=== PATIENT | male | born 1960 | race American Indian/Alaskan Native ===

== ENCOUNTER 2020-06-20 08:52 | Emergency (ER) | payer MEDICARE ==
[2020-06-20 08:57] VITALS: BP 156/70
[2020-06-20 09:55] LABS: BUN/Creatinine Ratio 19; Basophils # (Auto) 0.2 K/mm3 (0.0-0.1); Blood Urea Nitrogen 17 mg/dL (9-20); Calcium 8.8 mg/dL (8.4-10.2); Eosinophils # (Auto) 0.3 K/mm3 (0.0-0.4); Eosinophils % (Auto) 2.7 % (0.0-4.3); Hematocrit 38.2 % (35.5-45.6); Hemoglobin 14.7 gm/dl (11.8-15.2); Hemolysis Index 238; Lymphocytes # (Auto) 3.6 K/mm3 (1.2-5.4); Lymphocytes % (Auto) 35.1 % (13.4-35.0); Mean Corpuscular Volume 95 fl (84-94); Monocytes # (Auto) 0.9 K/mm3 (0.0-0.8); Monocytes % (Auto) 9.1 % (0.0-7.3); Platelet Count 224 K/mm3 (140-440); Red Blood Count 4.02 M/mm3 (3.65-5.03); Red Cell Distribution Width 13.5 % (13.2-15.2)
[2020-06-20 09:58] LABS: Mean Corpuscular HGB Conc 38 % (32-34)
[2020-06-20 09:58] LABS: Bilirubin,Urine NEG (Negative); Blood,Urine NEG (Negative); Color,Urine Yellow (Yellow); Protein,Urine <15 mg/dL mg/dL (Negative); Urobilinogen,Urine < 2.0 mg/dL (<2.0); WBC,Urine < 1.0 /HPF (0.0-6.0)
[2020-06-20 10:37] LABS: Alanine Aminotransferase < 5 units/L (7-56)
[2020-06-20 10:39] LABS: Albumin 3.6 g/dL (3.9-5)
--- NOTE | 2020-06-20 11:27 | Emergency Department Report ---
ED General Adult HPI - General Chief complaint: Abdominal Pain Stated complaint: LEFT SIDE PAIN Time Seen by Provider: 06/20/20 11:07 Source: patient Mode of arrival: Ambulatory Limitations: No Limitations - History of Present Illness Initial comments: 59-year-old F [place] male past medical history of hypertension diabetes presents emerged department complaining of a two-week history of progressively worsening left flank pain which is now began to radiate to the left lower quadrant and a dull achy sensation. The symptoms are worse with deep breath and coughing Ambulating reports no shortness of breath reports no hemoptysis no hematemesis no hematochezia. Has been having some polyuria and polydipsia. Ports no headache blurred vision or dizziness. Consistency: constant Improves with: none Worsens with: none Associated Symptoms: cough, nausea/vomiting. denies: confusion, loss of appetite, syncope, weakness Treatments Prior to Arrival: none - Related Data Home Medications Medication Instructions Recorded Confirmed Last Taken No Known Home Medications [No 07/20/13 07/20/13 Unknown Reported Home Medications] Allergies Allergy/AdvReac Type Severity Reaction Status Date / Time No Known Allergies Allergy Unverified 07/20/13 18:10 ED Review of Systems ROS: Stated complaint: LEFT SIDE PAIN Other details as noted in HPI Comment: All other systems reviewed and negative ED Past Medical Hx - Past Medical History Previous Medical History?: Yes Hx Hypertension: Yes Hx Diabetes: Yes - Surgical History Past Surgical History?: No - Social History Smoking Status: Current Every Day Smoker Substance Use Type: None - Medications Home Medications: Home Medications Medication Instructions Recorded Confirmed Last Taken Type No Known Home Medications [No 07/20/13 07/20/13 Unknown History Reported Home Medications] ED Physical Exam - General Limitations: No Limitations General appearance: alert, in no apparent distress - Head Head exam: Present: atraumatic, normocephalic - Eye Eye exam: Present: normal appearance, PERRL, EOMI Pupils: Present: normal accommodation - ENT ENT exam: Present: normal exam, normal orophraynx, mucous membranes moist, TM's normal bilaterally - Neck Neck exam: Present: normal inspection, full ROM - Respiratory Respiratory exam: Present: normal lung sounds bilaterally. Absent: respiratory distress, wheezes, rales, chest wall tenderness, accessory muscle use - Cardiovascular Cardiovascular Exam: Present: regular rate, normal rhythm. Absent: systolic murmur, diastolic murmur, rubs, gallop - GI/Abdominal GI/Abdominal exam: Present: soft, normal bowel sounds - Rectal Rectal exam: Present: deferred - Extremities Exam Extremities exam: Present: normal inspection - Back Exam Back exam: Present: normal inspection - Neurological Exam Neurological exam: Present: alert, oriented X3 - Psychiatric Psychiatric exam: Present: normal affect, normal mood - Skin Skin exam: Present: warm, dry, intact, normal color. Absent: rash ED Course Vital Signs 06/20/20 08:54 Temperature 97.9 F Pulse Rate 99 H Respiratory 20 Rate Blood Pressure 156/70 O2 Sat by Pulse 97 Oximetry ED Medical Decision Making - Lab Data Result diagrams: 06/20/20 09:01 06/20/20 14:21 - Radiology Data Radiology results: report reviewed [address] [address] XRay Report Signed Patient: MICAH GRUBBS MR#: [id number] : 1960 Acct:[id number] Age/Sex: 59 / M ADM Date: 06/20/20 Loc: ED Attending Dr: Ordering Physician: LATA MCALLISTER Date of Service: 06/20/20 Procedure(s): XR chest routine 2V Accession Number(s): [id number] cc: LATA MCALLISTER Fluoro Time In Minutes: CHEST 2 VIEWS INDICATION / CLINICAL INFORMATION: left lower rohini pain. COMPARISON: None available. FINDINGS: SUPPORT DEVICES: None. HEART / MEDIASTINUM: No significant abnormality. LUNGS / PLEURA: No significant pulmonary or pleural abnormality. No pneumothorax. ADDITIONAL FINDINGS: No significant additional findings. IMPRESSION: No acute cardiopulmonary abnormality. Signer Name: Naaryan Almazan MD Signed: 06/20/2020 12:32 PM Workstation Name: [id number] Transcribed By: SS Dictated By: NARAYAN ALMAZAN Electronically Authenticated By: NARAYAN ALMAZAN Signed Date/Time: 06/20/20 1232 DD/ 1232 TD/TT: [address] [address] Cat Scan Report Signed Patient: MICAH GRUBBS MR#: [id number] : 1960 Acct:[id number] Age/Sex: 59 / M ADM Date: 06/20/20 Loc: ED Attending Dr: Ordering Physician: LATA MCALLISTER Date of Service: 06/20/20 Procedure(s): CT abdomen pelvis w con Accession Number(s): [id number] cc: LATA MCALLISTER CT ABDOMEN AND PELVIS WITH CONTRAST INDICATION / CLINICAL INFORMATION: MAIN. TECHNIQUE: Axial CT images were obtained through the abdomen and pelvis after IV contrast. All CT scans at this location are performed using CT dose reduction for ALARA by means of automated exposure control. COMPARISON: None available. FINDINGS: LOWER CHEST: Mild to moderate paraseptal emphysema noted. LIVER: No significant abnormality. GALLBLADDER: No significant abnormality. BILE DUCTS: No significant abnormality. PANCREAS: No significant abnormality. SPLEEN: No significant abnormality. ADRENALS: No significant abnormality. RIGHT KIDNEY / URETER: Symmetric perinephric stranding is of doubtful clinical significance. LEFT KIDNEY / URETER: Symmetric perinephric stranding is of doubtful clinical significance. STOMACH / SMALL BOWEL: There is mild distal gastric mucosal thickening which can be seen with gastritis. COLON: No significant abnormality. APPENDIX: No significant abnormality. PERITONEUM: No free fluid. No free air. No fluid collection. LYMPH NODES: No significant adenopathy. AORTA / ARTERIES: Moderate atherosclerotic calcification and soft plaque without acute abnormality. IVC / VEINS: No significant abnormality. URINARY BLADDER: Distended without significant abnormality. REPRODUCTIVE ORGANS: No significant abnormality. ADDITIONAL FINDINGS: None. SKELETAL SYSTEM: No significant abnormality. IMPRESSION: 1. Mild gastric mucosal thickening can be seen with gastritis. Clinical correlation is recommended. 2. Patchy bilateral perinephric stranding is doubtful clinical significance. Signer Name: Narayan Almazan MD Signed: 06/20/2020 12:13 PM Workstation Name: [id number] Transcribed By: SS Dictated By: NARAYAN ALMAZAN Electronically Authenticated By: NARAYAN ALMAZAN Signed Date/Time: 06/20/20 1213 DD/ 1205 Critical care attestation.: If time is entered above; I have spent that time in minutes in the direct care of this critically ill patient, excluding procedure time. ED Disposition Clinical Impression: Abdominal pain Disposition: ELOPED Is pt being admited?: No Does the pt Need Aspirin: No Condition: Undetermined Referrals: PRIMARY CARE, [Primary Care Provider] - 3-5 Days
[2020-06-20] MEDS ORDERED: SODIUM CHLORIDE 0.9% 1000 ML 1,000 ML IV ONE (11:49)
--- NOTE | 2020-06-20 12:17 | Cat Scan Report ---
CT ABDOMEN AND PELVIS WITH CONTRAST INDICATION / CLINICAL INFORMATION: MAIN. TECHNIQUE: Axial CT images were obtained through the abdomen and pelvis after IV contrast. All CT scans at this location are performed using CT dose reduction for ALARA by means of automated exposure control. COMPARISON: None available. FINDINGS: LOWER CHEST: Mild to moderate paraseptal emphysema noted. LIVER: No significant abnormality. GALLBLADDER: No significant abnormality. BILE DUCTS: No significant abnormality. PANCREAS: No significant abnormality. SPLEEN: No significant abnormality. ADRENALS: No significant abnormality. RIGHT KIDNEY / URETER: Symmetric perinephric stranding is of doubtful clinical significance. LEFT KIDNEY / URETER: Symmetric perinephric stranding is of doubtful clinical significance. STOMACH / SMALL BOWEL: There is mild distal gastric mucosal thickening which can be seen with gastrit is. COLON: No significant abnormality. APPENDIX: No significant abnormality. PERITONEUM: No free fluid. No free air. No fluid collection. LYMPH NODES: No significant adenopathy. AORTA / ARTERIES: Moderate atherosclerotic calcification and soft plaque without acute abnormality. IVC / VEINS: No significant abnormality. URINARY BLADDER: Distended without significant abnormality. REPRODUCTIVE ORGANS: No significant abnormality. ADDITIONAL FINDINGS: None. SKELETAL SYSTEM: No significant abnormality. IMPRESSION: 1. Mild gastric mucosal thickening can be seen with gastritis. Clinical correlation is recommended. 2. Patchy bilateral perinephric stranding is doubtful clinical significance. Signer Name: Cordell Almazan MD Signed: 06/20/2020 12:13 PM Workstation Name: [id number]
--- NOTE | 2020-06-20 12:37 | XRay Report ---
CHEST 2 VIEWS INDICATION / CLINICAL INFORMATION: left lower rohini pain. COMPARISON: None available. FINDINGS: SUPPORT DEVICES: None. HEART / MEDIASTINUM: No significant abnormality. LUNGS / PLEURA: No significant pulmonary or pleural abnormality. No pneumothorax. ADDITIONAL FINDINGS: No significant additional findings. IMPRESSION: No acute cardiopulmonary abnormality. Signer Name: Cordell Almazan MD Signed: 06/20/2020 12:32 PM Workstation Name: [id number]
[2020-06-20 14:57] LABS: Calcium 9.2 mg/dL (8.4-10.2); Hemolysis Index 76
[2020-06-20 15:06] LABS: Blood Urea Nitrogen 17 mg/dL (9-20)
[2020-06-20 15:08] LABS: BUN/Creatinine Ratio 28
== END 2020-06-20 15:39 | disposition left against medical advice (07) ==
LOC: ED 08:52 → EDBD 08:52 → ED 15:39
DX: R10.32 Left lower quadrant pain (principal); R05 Cough; R35.8 Other polyuria; R63.1 Polydipsia; R11.2 Nausea with vomiting, unspecified; I10 Essential (primary) hypertension; E11.9 Type 2 diabetes mellitus without complications; F17.200 Nicotine dependence, unspecified, uncomplicated
CPT/HCPCS: 36415; 71046; 74177; 80048; 80053; 81001; 82962; 83690; 85025; 96360; 96361; 99284; J7030; Q9967

== ENCOUNTER 2022-05-23 05:56 | Inpatient (IN) | payer OTHER, MEDICARE ==
[2022-05-17 13:46] LABS: Hematocrit 38.6 % (35.5-45.6); Hemoglobin 13.2 gm/dl (11.8-15.2); Mean Corpuscular HGB Conc 34 % (32-34); Mean Corpuscular Volume 96 fl (84-94); Platelet Count 216 K/mm3 (140-440); Red Blood Count 4.02 M/mm3 (3.65-5.03); Red Cell Distribution Width 14.6 % (13.2-15.2)
[2022-05-17 14:08] LABS: BUN/Creatinine Ratio 11; Blood Urea Nitrogen 13 mg/dL (9-20); Hemolysis Index 3
--- NOTE | 2022-05-17 17:26 | Anesthesia Consultation ---
Anesthesia Consult and Med Hx Date of service: 05/23/22 - Airway Anesthetic Teeth Evaluation: Dentures, Edentulous ROM Head & Neck: Adequate Mental/Hyoid Distance: Adequate Mallampati Class: Class II Intubation Access Assessment: Good - Pre-Operative Health Status ASA Pre-Surgery Classification: ASA3 Proposed Anesthetic Plan: General (+Art line) - Pulmonary Hx Smoking: Yes (SMOKES 4-5 CIGS/DAY) Hx Sleep Apnea: No - Cardiovascular System Hx Hypertension: Yes Hx Heart Attack/AMI: No Hx Peripheral Vascular Disease: Yes - Central Nervous System CVA: Yes (MARCH 2022. CAROTID STENOSIS.) Hx Psychiatric Problems: Yes (PTSD) - Gastrointestinal Hx Gastroesophageal Reflux Disease: No - Endocrine Hx Non-Insulin Dependent Diabetes: Yes - Hematic Hx Sickle Cell Disease: No - Other Systems Hx Alcohol Use: No Hx Substance Use: No Hx Cancer: No Hx Obesity: No - Additional Comments Anesthesia Medical History Comments: numbness left side mouth, left hand, and left leg. +cardiac clearance; had NST and ECHO [id number]
[2022-05-23] MEDS ORDERED: ceFAZolin/STERILE WATER 2 GM/20 ML SYRINGE IV NR (06:00)
[2022-05-23] MEDS ORDERED: ACETAMINOPHEN 325 MG TAB PO ONE (06:00)
[2022-05-23] MEDS: ACETAMINOPHEN 325 MG TAB PO SCH ×2 (06:38→18:19)
[2022-05-23] MEDS: LACTATED RINGERS 1,000 ML IV SCH ×2 (06:45→22:17)
[2022-05-23] MEDS ORDERED: MIDAZOLAM 2 MG/2 ML INJ ONE (07:17)
[2022-05-23] MEDS ORDERED: propofoL 200 MG/20 ML VIAL IV ONE (07:28)
[2022-05-23] MEDS ORDERED: HYDROmorphone 1 MG/1 ML INJ ONE (07:28)
[2022-05-23] MEDS ORDERED: ROCURONIUM 50 MG/5 ML INJ IV ONE ×2 (07:29→12:30)
[2022-05-23] MEDS ORDERED: LIDOCAINE MPF (2%) 20 MG/1 ML VIAL 5 ML ONE (07:29)
[2022-05-23] MEDS ORDERED: HYDROmorphone 0.5 MG/0.5 ML INJ IV PRN (07:52)
--- NOTE | 2022-05-23 07:52 | Anesthesia Day of Surgery ---
Anesthesia Day of Surgery - Day of Surgery Patient Examined: Yes Patient H&P Reviewed: Yes Patient is NPO: Yes
[2022-05-23] MEDS ORDERED: MIDAZOLAM 2 MG/2 ML INJ IV NR (08:00)
[2022-05-23] MEDS ORDERED: MORPHINE 4 MG/1 ML INJ IV PRN ×2 (08:44)
[2022-05-23] MEDS ORDERED: DOPamine 800 MG/D5W 250ML 800 MG/250 ML BAG IV SCH (09:00)
[2022-05-23] MEDS ORDERED: SODIUM CHLORIDE 0.9% 1000 ML 1,000 ML IV SCH (09:30)
[2022-05-23] MEDS ORDERED: BUPIVACAINE/PF (0.5%) 5 MG/1 ML 10 ML VIAL INFILTRATI ONE ×2 (10:45→13:23)
[2022-05-23] MEDS ORDERED: LIDOCAINE-MPF (1%) 10 MG/1 ML VIAL 5 ML ONE (10:46)
[2022-05-23] MEDS ORDERED: PROTAMINE SULFATE 50 MG/5 ML INJ ONE (10:46)
[2022-05-23] MEDS ORDERED: HEPARIN 10,000 UNITS/10 ML VIAL ONE (10:46)
[2022-05-23] MEDS ORDERED: PAPAVERINE 60 MG/2 ML INJ SDV ONE (10:46)
[2022-05-23] MEDS ORDERED: SODIUM CHLORIDE 0.9% 500 ML 500 ML ONE (10:47)
[2022-05-23] MEDS ORDERED: rifAMPin 600 MG VIAL ONE (10:47)
[2022-05-23] MEDS ORDERED: SODIUM CHLORIDE 0.9% 0 ML ONE (10:47)
[2022-05-23] MEDS ORDERED: THROMBIN (RECOMBINANT) 5,000 UNIT VIAL TP ONE (10:47)
[2022-05-23] MEDS ORDERED: LACTATED RINGERS 1,000 ML ONE (12:06)
[2022-05-23] MEDS ORDERED: HEPARIN 10,000 UNITS/10 ML VIAL IV ONE (12:11)
[2022-05-23] MEDS ORDERED: SODIUM CHLORIDE 0.9% 500 ML IVPB IRRIGATION ONE (12:14)
[2022-05-23] MEDS ORDERED: SODIUM CHLORIDE 0.9% IRR 1,500 ML BOTTLE IR ONE (12:18)
[2022-05-23] MEDS ORDERED: PHENYLEPHRINE 10 MG/1 ML INJ SDV ONE (12:25)
[2022-05-23] MEDS ORDERED: SODIUM CHLORIDE P/F VIAL 10 ML 10 ML ONE (12:25)
[2022-05-23] MEDS ORDERED: SODIUM CHLORIDE 0.9% 100 ML ONE (12:25)
[2022-05-23] MEDS ORDERED: rifAMPin 600 MG VIAL IV ONE (12:27)
[2022-05-23] MEDS ORDERED: SODIUM CHLORIDE 0.9% P/F 10 ML VIAL INFILTRATI ONE (12:28)
[2022-05-23] MEDS ORDERED: NEOSTIGMINE 10MG/10 ML INJ MDV ONE (13:29)
[2022-05-23] MEDS ORDERED: ONDANSETRON 4 MG/2 ML INJ ONE (13:29)
[2022-05-23] MEDS ORDERED: GLYCOPYRROLATE 0.4 MG/2 ML INJ ONE (13:29)
--- NOTE | 2022-05-23 13:48 | Vascular Lab Report ---
VL carotid duplex LT INDICATION / CLINICAL INFORMATION: LT.CAROTID STENOSIS. COMPARISON: None available. FINDINGS/IMPRESSION: Intraoperative ultrasound of the left internal carotid artery was performed status post left endarter ectomy. The left internal carotid artery demonstrates patency with peak systolic velocities of 107 cm /s and end-diastolic velocities of 31 cm/s. No significant stenosis. Signer Name: Silvano Germain DO Signed: 05/23/2022 1:44 PM Workstation Name: [id number]
--- NOTE | 2022-05-23 13:56 | Operative Report ---
Operative Report Operative Report: Date of procedure: 05/23/2022 Pre-operative diagnosis: Left Carotid Artery Stenosis Post-operative diagnosis: Left Carotid Artery Stenosis Procedure(s): 1. Left Carotid Endarterectomy With Patch Angioplasty 2. Intraoperative Completion Duplex Surgeon: Tyler Collins MD [employer]acht: None Anesthesia: General Endotracheal Anesthesia EBL: Minimal Findings: There was soft thrombus within with evidence of plaque ulceration upon creating the arteriotomy. Completion duplex demonstrated monophasic flow in the left internal carotid artery with peak systolic velocities normalized. Specimen: Left Carotid Plaque Counts: Correct Complications: None Condition: Stable Indication: The patient is a 61-year-old male with a history of a right stroke however he had minimal plaque within the right internal carotid artery. He was found to have greater than 80% stenosis of the left internal carotid artery. His symptoms from his stroke resolved and he is in need of a carotid endarterectomy with patch angioplasty to prevent a CVA on the left. He was given the risk, benefits, and alternative procedures and consented to the procedure. Description of Procedure: The patient was brought to the operating room and laid in supine position. After general endotracheal anesthesia was achieved the patient was placed in beachchair position with her head elevated and turned slightly to the right. The patient's neck and chest were prepped and draped in normal fashion. An oblique incision was then created along the anterior border of the sternocleidomastoid. The incision was then carried down to the facial vein using sharp dissection. The facial vein was then dissected out circum ferentially, suture ligated and divided. The dissection was then carried down to the common carotid using sharp dissection. The common carotid artery was dissected out circumferentially taking care to avoid the vagus nerve which was identified and avoided. The artery was then controlled with a large vessel loop. The dissection was carried up along the external carotid and the superficial thyroid artery was identified dissected out circumferentially and controlled with a 2-0 silk. The external carotid was dissected out and controlled a small vessel loop. I then dissected out the internal carotid artery well above the plaque which was identified by a change in hue of the artery from yellow to blue and palpation of the artery over a right angle. I controlled the internal carotid artery with a small vessel and at this point the patient was systemically heparinized with heparin IV. Once the heparin had circulated for 3 minute I clamped the internal carotid artery followed by the common carotid and then the external Carotid artery. I created an arteriotomy extending from the common carotid into the internal carotid, well above the plaque, using an 11 blade and Ríos scissors. I then flashed the internal carotid artery to check for adequate backbleeding. Once ensure there was adequate backbleeding reclamped the artery and used a [place] blade to dissect the plaque away from the artery. I used a right angle to continue the dissection of this plane from lateral to medial and then divided the plaque using Ríos scissors. I then trimmed the plaque proximally using Ríos and then teased the plaque away from the distal endpoint insuring that there were no areas of dissection or intimal flaps. These plaque forceps to remove all loose debris and then flushed the artery with heparinized saline. I then closed the artery using the Dacron patch and two 6-0 Prolenes in running fashion. Prior to completing the closure I flushed all arteries to remove all loose debris and t hen flushed the artery with heparinized saline. I then completed the closure in an flashed the internal carotid, reclamped and then removed the clamp from the common carotid followed by the external carotid and allowed any loose debris to flush into the external carotid. I then removed the clamp from the internal carotid artery. Hemostasis was achieved with repair sutures with 6-0 Prolene in interrupted fashion and a combination of direct pressure with Quick Clot. Once hemostasis was achieved I performed an intraoperative duplex that demonstrated no evidence of intimal flaps and monophasic flow within the internal carotid artery. I then anesthetized the wound with 0.5% Marcaine and closed in 2 layers using a 3-0 Vicryl in running in the deep dermal layer and a 4-0 Monocryl in running in the subcuticular layer and dressed it with the Dermabond. The patient tolerated the procedure well. All sponge, needle, and instrument counts were correct. The patient was taken to the recovery area in stable condition.
--- NOTE | 2022-05-23 14:59 | Post Anesthesia Evaluation ---
- Post Anesthesia Evaluation Patient Participated: Yes Airway Patent: Yes Stable Respiratory Function: Yes Nausea/Vomiting: No Temp > 96.8F: Yes Pain Manageable: Yes Adequeate Hydration: Yes Anesthesia Complications: No
[2022-05-23] MEDS: DOCUSATE SODIUM 100 MG CAP PO SCH ×2 (16:45→23:26)
[2022-05-23] MEDS: CLOPIDOGREL 75 MG TAB PO SCH (16:45)
[2022-05-23] MEDS: ceFAZolin/NS 1 GM/50 ML 1 GM/50 ML BAG IV SCH ×2 (18:23→21:36)
[2022-05-23] MEDS: NITROPRUSSIDE 50 MG in DEXTROSE 5% IN WATER 248 ML IV SCH (21:36)
[2022-05-24] MEDS: HYDROcodone/ACETAMINOPHEN 5-325 MG TAB PO PRN ×2 (01:25→20:44)
[2022-05-24 05:02] LABS: Basophils # (Auto) 0.1 K/mm3 (0.0-0.1); Basophils % (Auto) 0.7 % (0.0-1.8); Eosinophils # (Auto) 0.2 K/mm3 (0.0-0.4); Eosinophils % (Auto) 1.5 % (0.0-4.3); Hematocrit 35.4 % (35.5-45.6); Hemoglobin 11.7 gm/dl (11.8-15.2); Lymphocytes % (Auto) 32.8 % (13.4-35.0); Mean Corpuscular HGB Conc 33 % (32-34); Mean Corpuscular Volume 98 fl (84-94); Monocytes % (Auto) 7.8 % (0.0-7.3); Platelet Count 197 K/mm3 (140-440); Red Blood Count 3.63 M/mm3 (3.65-5.03); Red Cell Distribution Width 14.3 % (13.2-15.2)
[2022-05-24] MEDS: ACETAMINOPHEN 325 MG TAB PO PRN ×2 (08:34→14:50)
[2022-05-24] MEDS: LACTATED RINGERS 1,000 ML IV SCH (08:35)
[2022-05-24] MEDS: CLOPIDOGREL 75 MG TAB PO SCH (09:17)
[2022-05-24] MEDS: DOCUSATE SODIUM 100 MG CAP PO SCH ×2 (09:17→21:10)
[2022-05-24] MEDS ORDERED: METOPROLOL SUCCINATE XL 25 MG TAB PO SCH (12:00)
[2022-05-24] MEDS: FLUoxetine 20 MG CAP PO SCH (12:38)
--- NOTE | 2022-05-24 14:13 | Progress Note ---
Assessment and Plan POD #1 s/p Left Carotid endarterectomy with patch angioplasty Patient is doing well and without complications. Hypertension so Nipride gtt was started Home meds given so if hypertension resolves will discharge later today. If it persist will consult hospitalist for assistance and recommendations for additional medications to control BP. Discharge will be delayed until BP is controlled. Subjective Date of service: 05/24/22 Interval history: Patient is without complaints. Some hypertension so Nipride gtt was started. Objective - Constitutional Vitals: Vital Signs - 12hr 05/24/22 05/24/22 05/24/22 02:15 02:30 02:45 Temperature Pulse Rate 63 68 64 Pulse Rate [ From Monitor] Respiratory 16 15 16 Rate Blood Pressure 145/66 151/70 151/70 O2 Sat by Pulse 97 97 98 Oximetry 05/24/22 05/24/22 05/24/22 03:02 03:15 03:30 Temperature Pulse Rate 66 62 68 Pulse Rate [ From Monitor] Respiratory 16 15 15 Rate Blood Pressure 150/62 139/59 O2 Sat by Pulse 99 98 97 Oximetry 05/24/22 05/24/22 05/24/22 03:45 04:00 04:15 Temperature Pulse Rate 64 61 67 Pulse Rate [ From Monitor] Respiratory 15 13 16 Rate Blood Pressure 131/61 135/61 135/61 O2 Sat by Pulse 97 98 96 Oximetry 05/24/22 05/24/22 05/24/22 04:31 04:45 05:00 Temperature Pulse Rate 59 L 67 81 Pulse Rate [ From Monitor] Respiratory 15 15 16 Rate Blood Pressure 154/74 157/69 139/71 O2 Sat by Pulse 98 95 97 Oximetry 05/24/22 05/24/22 05/24/22 05:15 05:30 05:45 Temperature Pulse Rate 67 62 60 Pulse Rate [ From Monitor] Respiratory 12 18 16 Rate Blood Pressure 139/71 153/69 151/68 O2 Sat by Pulse 97 96 96 Oximetry 05/24/22 05/24/22 05/24/22 06:00 06:15 06:30 Temperature Pulse Rate 64 68 65 Pulse Rate [ 61 From Monitor] Respiratory 16 16 16 Rate Blood Pressure 149/68 141/70 139/65 O2 Sat by Pulse 98 97 97 Oximetry 05/24/22 05/24/22 05/24/22 06:45 07:00 07:15 Temperature Pulse Rate 62 68 64 Pulse Rate [ From Monitor] Respiratory 16 18 18 Rate Blood Pressure 137/64 144/60 131/57 O2 Sat by Pulse 97 98 96 Oximetry 05/24/22 05/24/22 05/24/22 07:31 07:45 08:00 Temperature 98 F Pulse Rate 68 72 67 Pulse Rate [ 67 From Monitor] Respiratory 20 13 18 Rate Blood Pressure 131/57 128/64 O2 Sat by Pulse 97 97 96 Oximetry 05/24/22 05/24/22 05/24/22 08:01 08:15 08:31 Temperature Pulse Rate 76 85 80 Pulse Rate [ From Monitor] Respiratory 16 12 15 Rate Blood Pressure 149/58 148/59 157/70 O2 Sat by Pulse 97 92 95 Oximetry 05/24/22 05/24/22 05/24/22 08:45 09:01 09:15 Temperature Pulse Rate 76 69 66 Pulse Rate [ From Monitor] Respiratory 14 17 17 Rate Blood Pressure 157/70 154/67 156/66 O2 Sat by Pulse 96 95 97 Oximetry 05/24/22 05/24/22 05/24/22 09:30 09:45 10:00 Temperature Pulse Rate 66 63 65 Pulse Rate [ From Monitor] Respiratory 19 18 18 Rate Blood Pressure 157/67 162/69 153/68 O2 Sat by Pulse 97 97 97 Oximetry 05/24/22 05/24/22 05/24/22 10:15 10:30 10:45 Temperature Pulse Rate 68 65 89 Pulse Rate [ From Monitor] Respiratory 17 18 20 Rate Blood Pressure 153/68 174/74 174/74 O2 Sat by Pulse 97 96 97 Oximetry 05/24/22 05/24/22 05/24/22 11:01 11:15 11:31 Temperature Pulse Rate 64 64 81 Pulse Rate [ From Monitor] Respiratory Rate Blood Pressure 173/71 173/71 168/71 O2 Sat by Pulse 97 97 95 Oximetry 05/24/22 05/24/22 05/24/22 11:42 11:45 12:00 Temperature 98.1 F Pulse Rate 71 70 Pulse Rate [ 91 H From Monitor] Respiratory 16 Rate Blood Pressure 162/69 156/71 O2 Sat by Pulse 94 96 Oximetry 05/24/22 05/24/22 05/24/22 12:15 12:31 12:45 Temperature Pulse Rate 71 74 75 Pulse Rate [ From Monitor] Respiratory 21 Rate Blood Pressure 156/67 156/65 149/63 O2 Sat by Pulse 94 95 94 Oximetry 05/24/22 13:01 Temperature Pulse Rate 77 Pulse Rate [ From Monitor] Respiratory Rate Blood Pressure 178/79 O2 Sat by Pulse 96 Oximetry General appearance: Present: no acute distress - EENT ENT: other (tongue is midline, left neck incision is intact and wihtout evidence of a hematoma) - Respiratory Respiratory effort: normal - Cardiovascular Rhythm: regular Extremities: pulses intact - Gastrointestinal General gastrointestinal: Present: soft - Neurologic Neurologic: no focal deficits, moves all extremities - Labs CBC & Chem 7: 05/24/22 04:30 05/17/22 13:30 Labs: Abnormal lab results 05/24/22 Range/Units 04:30 WBC 12.2 H (4.5-11.0) K/mm3 RBC 3.63 L (3.65-5.03) M/mm3 Hgb 11.7 L (11.8-15.2) gm/dl Hct 35.4 L (35.5-45.6) % MCV 98 H (84-94) fl [place] % (Auto) 7.8 H (0.0-7.3) % [place] # (Auto) 1.0 H (0.0-0.8) K/mm3 Medications & Allergies - Medications Allergies/Adverse Reactions: Allergies No Known Allergies Allergy (Verified 05/16/22 12:29) Home Medications: Home Medications Medication Instructions Recorded Confirmed Last Taken Type FLUoxetine [PROzac] 20 mg PO QDAY 03/14/22 05/16/22 05/22/22 History QUEtiapine [SEROquel] 100 mg PO DAILY 03/14/22 05/16/22 05/22/22 History Aspirin 325 mg PO QDAY 30 Days #30 tablet 03/15/22 05/23/22 05/21/22 Rx Atorvastatin Calcium [Lipitor] 80 mg PO QHS 30 Days #30 tab 03/15/22 05/16/22 05/22/22 Rx Fenofibrate [Tricor] 145 mg PO QDAY 30 Days #30 tablet 03/15/22 05/16/22 05/22/22 Rx Metoprolol Succinate [Kapspargo 25 mg PO QDAY 30 Days #30 tab 03/15/22 05/16/22 05/22/22 21:00 Rx Sprinkle] Active Medications: Generic Name Dose Route Start Last Admin Trade Name Aaronq PRN Reason Stop Dose Admin Acetaminophen 650 mg 05/23/22 09:28 05/24/22 08:34 Acetaminophen 325 Mg Tab PO 650 mg Q4H PRN Administration Pain MILD(1-3)/Fever >100.5/BANERJEE Hydrocodone Bitart/Acetaminophen 1 each 05/23/22 08:44 05/24/22 01:25 Hydrocodone/Acetaminophen 5-325 Mg Tab PO 1 each Q6H PRN Administration Pain, Moderate (4-6) Atorvastatin Calcium 80 mg 05/24/22 22:00 Atorvastatin 40 Mg Tab PO QHS KENZIE Clopidogrel Bisulfate 75 mg 05/23/22 10:00 05/24/22 09:17 Clopidogrel 75 Mg Tab PO 75 mg QDAY KENZIE Administration Docusate Sodium 100 mg 05/23/22 10:00 05/24/22 09:17 Docusate Sodium 100 Mg Cap PO 100 mg BID KENZIE Administration Fluoxetine HCl 20 mg 05/24/22 12:00 05/24/22 12:38 Fluoxetine 20 Mg Cap PO 20 mg QDAY KENZIE Administration Dopamine HCl/Dextrose 800 mg in 250 mls @ 2.551 mls/hr 05/23/22 09:00 Dopamine 800 Mg/D5w 250ml IV TITR KENZIE Protocol 2 MCG/KG/MIN Sodium Nitroprusside 50 mg/ 250 mls @ 5.103 mls/hr 05/23/22 09:00 05/24/22 11:43 Dextrose IV 0.5 mcg/kg/min TITR KENZIE 10.206 mls/hr Titration Protocol 0.25 MCG/KG/MIN Metoprolol Succinate 25 mg 05/24/22 12:00 05/24/22 12:38 Metoprolol Succinate Xl 25 Mg Tab PO 25 mg QDAY KENZIE Administration Morphine Sulfate 2 mg 05/23/22 08:44 05/23/22 16:45 Morphine 4 Mg/1 Ml Inj IV 2 mg Q4H PRN Administration Pain, Moderate (4-6) Morphine Sulfate 4 mg 05/23/22 08:44 Morphine 4 Mg/1 Ml Inj IV Q4H PRN Pain , Severe (7-10)
--- NOTE | 2022-05-24 16:22 | Consultation ---
History of Present Illness - Reason for Consult Consult date: 05/24/22 HTN Requesting physician: KARLA COLLINS - History of Present Illness 61 YO Male with HTN, DM, HLD, Carotid Stenosis, PVD, Nicotine Dependence, CVA, PTSD admitted for CEA. Consult placed by Dr. Collins for medical management. Patient seen and evaluated upon arrival to his room. Patient resting comfo rtably. Patient denies pain. No reported nursing events. Past History Past Medical History: diabetes, hypertension, hyperlipidemia, PVD, other (See HPI) Past Surgical History: Other (Vascular surgery) Social history: smoking Family history: diabetes, hypertension Medications and Allergies Allergies Allergy/AdvReac Type Severity Reaction Status Date / Time No Known Allergies Allergy Verified 05/16/22 12:29 Home Medications Medication Instructions Recorded Confirmed Last Taken Type FLUoxetine [PROzac] 20 mg PO QDAY 03/14/22 05/16/22 05/22/22 History QUEtiapine [SEROquel] 100 mg PO DAILY 03/14/22 05/16/22 05/22/22 History Aspirin 325 mg PO QDAY 30 Days #30 tablet 03/15/22 05/23/22 05/21/22 Rx Atorvastatin Calcium [Lipitor] 80 mg PO QHS 30 Days #30 tab 03/15/22 05/16/22 05/22/22 Rx Fenofibrate [Tricor] 145 mg PO QDAY 30 Days #30 tablet 03/15/22 05/16/22 05/22/22 Rx Metoprolol Succinate [Kapspargo 25 mg PO QDAY 30 Days #30 tab 03/15/22 05/16/22 05/22/22 21:00 Rx Sprinkle] Clopidogrel [Plavix] 75 mg PO QDAY #90 tablet 05/24/22 Unknown Rx HYDROcodone/APAP 5-325 [[place] 1 each PO Q4HR PRN #30 tablet 05/24/22 Unknown Rx 5/325] Active Meds: Active Medications Acetaminophen (Acetaminophen 325 Mg Tab) 650 mg PO Q4H PRN PRN Reason: Pain MILD(1-3)/Fever >100.5/BANERJEE Last Admin: 05/24/22 14:50 Dose: 650 mg Hydrocodone Bitart/Acetaminophen (Hydrocodone/Acetaminophen 5-325 Mg Tab) 1 each PO Q6H PRN PRN Reason: Pain, Moderate (4-6) Last Admin: 05/24/22 01:25 Dose: 1 each Atorvastatin Calcium (Atorvastatin 40 Mg Tab) 80 mg PO QHS [facility] Clopidogrel Bisulfate (Clopidogrel 75 Mg Tab) 75 mg PO QDAY [facility] Last Admin: 05/24/22 09:17 Dose: 75 mg Docusate Sodium (Docusate Sodium 100 Mg Cap) 100 mg PO BID [facility] Last Admin: 05/24/22 09:17 Dose: 100 mg Fluoxetine HCl (Fluoxetine 20 Mg Cap) 20 mg PO QDAY [facility] Last Admin: 05/24/22 12:38 Dose: 20 mg Dopamine HCl/Dextrose (Dopamine 800 Mg/D5w 250ml) 800 mg in 250 mls @ 2.551 mls/hr IV TITR [facility]; Protocol Sodium Nitroprusside 50 mg/ (Dextrose) 250 mls @ 5.103 mls/hr IV TITR [facility]; Protocol Last Titration: 05/24/22 16:03 Dose: 0.5 mcg/kg/min, 10.206 mls/hr Metoprolol Succinate (Metoprolol Succinate Xl 25 Mg Tab) 25 mg PO QDAY [facility] Last Admin: 05/24/22 12:38 Dose: 25 mg Morphine Sulfate (Morphine 4 Mg/1 Ml Inj) 2 mg IV Q4H PRN PRN Reason: Pain, Moderate (4-6) Last Admin: 05/23/22 16:45 Dose: 2 mg Morphine Sulfate (Morphine 4 Mg/1 Ml Inj) 4 mg IV Q4H PRN PRN Reason: Pain , Severe (7-10) Nifedipine (Nifedipine Xl 30 Mg Tab) 30 mg PO QDAY [facility] Review of Systems Constitutional: no weight loss, no fever Ears, nose, mouth and throat: no ear pain, no nasal congestion, no nasal disch arge Cardiovascular: no chest pain, no palpitations, no rapid/irregular heart beat, no edema, no syncope Respiratory: no cough, no cough with sputum, no hemoptysis, no shortness of breath Gastrointestinal: no abdominal pain, no nausea, no diarrhea Genitourinary Male: no hematuria, no flank pain, no discharge, no urinary hesitancy, no nocturia Rectal: no pain, no bleeding Musculoskeletal: no neck stiffness, no neck pain, no arm numbness/tingling, no low back pain, no shooting leg pain Integumentary: no pruritis, no redness, no wounds, no boils Neurological: no head injury, no weakness, no numbness, no seizures Psychiatric: no anxiety, no memory loss, no sleep disturbances, no insomnia, no hypersomnia, no change in appetite, no change in libido Endocrine: no cold intolerance, no polyphagia, no polydipsia Hematologic/Lymphatic: no easy bruising Allergic/Immunologic: no urticaria, no allergic rhinitis Exam - Constitutional Vitals: Temp Pulse Resp BP Pulse Ox 98.7 F 75 21 169/72 95 05/24/22 16:03 05/24/22 16:01 05/24/22 16:01 05/24/22 16:01 05/24/22 16:01 General appearance: Present: mild distress - EENT Eyes: Present: PERRL ENT: hearing intact, clear oral mucosa - Neck Neck: Present: supple, normal ROM, other (Incision clean dry intact.) - Respiratory Respiratory effort: normal Respiratory: bilateral: CTA - Cardiovascular Heart Sounds: Present: S1 & S2. Absent: rub, click - Extremities Extremities: pulses symmetrical, No edema Peripheral Pulses: within normal limits - Abdominal General gastrointestinal: Present: soft, non-tender, non-distended, normal bowel sounds Male genitourinary: Present: normal - Integumentary Integumentary: Present: clear, warm, dry - Musculoskeletal Musculoskeletal: gait normal, strength equal bilaterally - Psychiatric Psychiatric: appropriate mood/affect, intact judgment & insight - Neurologic Neurologic: CNII-XII intact, moves all extremities Results - Labs CBC & Chem 7: 05/24/22 04:30 05/17/22 13:30 Labs: Abnormal lab results 05/24/22 Range/Units 04:30 WBC 12.2 H (4.5-11.0) K/mm3 RBC 3.63 L (3.65-5.03) M/mm3 Hgb 11.7 L (11.8-15.2) gm/dl Hct 35.4 L (35.5-45.6) % MCV 98 H (84-94) fl Desha % (Auto) 7.8 H (0.0-7.3) % Desha # (Auto) 1.0 H (0.0-0.8) K/mm3 Assessment and Plan - Patient Problems (1) Hypertension Current Visit: Yes Status: Acute Qualifiers: Hypertension type: primary hypertension Qualified Code(s): I10 - Essential (primary) hypertension Plan to address problem: Monitor blood pressure every shift, continue medical management. Lisinopril 10 mg p.o. twice daily added to patient antihypertensive regimen. Blood pressure check as per nursing care protocol. Pain control. (2) Hyperlipidemia Current Visit: Yes Status: Acute Qualifiers: Hyperlipidemia type: mixed hyperlipidemia Qualified Code(s): E78.2 - Mixed hyperlipidemia Plan to address problem: Statin therapy, low-cholesterol diet. (3) Diabetes Current Visit: Yes Status: Acute Plan to address problem: Consistent carbohydrate diet, Accu-Chek, supportive care, (4) Nicotine dependence Current Visit: No Status: Acute Qualifiers: Nicotine product type: cigarettes Substance use status: in withdrawal Qualified Code(s): F17.213 - Nicotine dependence, cigarettes, with withdrawal Plan to address problem: Smoking cessation counseling, supportive care, behavior change counseling, +15 minutes. (5) Advance care planning Current Visit: Yes Status: Acute Plan to address problem: Disease education done, care plan discussed, diagnoses discussed, prognosis discussed, patient is full code, patient acknowledges understanding and agreement with care plan, +30 minutes. (6) Preventative health care Current Visit: Yes Status: Acute Plan to address problem: Patient counseled regarding medication compliance, risk factor reduction, outpatient follow-up with primary care physician for all age and risk factor appropriate screening test. +30 minutes.
[2022-05-24] MEDS: LISINOPRIL 10 MG TAB PO SCH ×2 (16:53→21:10)
[2022-05-24] MEDS ORDERED: NIFEdipine XL 30 MG TAB PO SCH (17:00)
[2022-05-25] MEDS: NITROPRUSSIDE 50 MG in DEXTROSE 5% IN WATER 248 ML IV SCH (02:19)
[2022-05-25] MEDS: ACETAMINOPHEN 325 MG TAB PO PRN (04:59)
[2022-05-25] MEDS: CLOPIDOGREL 75 MG TAB PO SCH (09:44)
[2022-05-25] MEDS: DOCUSATE SODIUM 100 MG CAP PO SCH (09:44)
[2022-05-25] MEDS: FLUoxetine 20 MG CAP PO SCH (09:44)
[2022-05-25] MEDS ORDERED: LOSARTAN 50 MG TAB PO SCH (10:00)
[2022-05-25] MEDS ORDERED: ASPIRIN 81 MG TAB CHEW PO SCH (10:00)
[2022-05-25] MEDS ORDERED: FENOFIBRATE 145 MG TAB PO SCH (10:00)
[2022-05-25] MEDS ORDERED: FAMOTIDINE 20 MG TAB PO SCH (10:00)
[2022-05-25] MEDS ORDERED: METOPROLOL SUCCINATE XL 25 MG TAB PO SCH (10:00)
--- NOTE | 2022-05-25 11:04 | Progress Note ---
<DACIA MERCHANT - Last Filed: 05/25/22 18:25> Assessment and Plan Assessment and plan: This is a 61-year-old AA male with known past medical history of HTN, DM, HLD, Nicotine Dependence, CVA, PTSD, and carotid stenosis s/p left carotid endarterectomy with patch angioplasty by Vascular Surgery. Patient got hypertensive post-op required Nitride gtt. IMS consulted for hypertension management Hospital Course to Date: 05/25: Home meds resumed. BP more control this morning, off the nipride gtt. PRN hydralazine for SBP greater than 160. If patient remains stable off the drip by this afternoon, patient is stable for discharge. Assessment and Plan #Hypertension - Post-op hypertension requiring nipride gtt - Home meds resumed- metoprolol 25mg BID and Losartan 50mg qDay - BP stable this am, off Nipride gtt - Continue blood pressure monitor per protocol - PRN Hydrazine to maintain SBP greater than 160 - If patient remains stable off the drip by this afternoon, patient is stable for discharge. #Carotid Stenosis s/p Left Carotid Endarterectomy - Per vascular Surgery, recent imaging revealed greater than 80% stenosis of the left internal carotid artery - 05/23 s/p left carotid endarterectomy with patch angioplasty by Vascular Surgery - On ASA and plavix - Further management differ to Vascualr Surgery #Hyperlipidemia - Statin therapy resumed #Type 2 Diabetes Mellitus - BG check and SSI ACHS - Avoid hypoglycemia #Nicotine Dependence - Smoking cessation counseling, supportive care, behavior change counseling - Patient verbalized understanding and agree with info provided #GI/DVT Prophylaxis - PPI- pepcid - SCDs to bilateral lower extremities while in bed #Advance Care Planning - Disease education done, care plan discussed, diagnoses discussed, prognosis discussed. Patient acknowledged understanding and agreement with current care plan. Patient is a FULL code The high probability of a clinically significant, sudden or life threatening deterioration of the [multiple] system(s) required my full and direct attention, intervention and personal management. The aggregate critical care time was [60] minutes. This time is in addition to time spent performing reported procedures but includes the following: [x] Data Review and interpretation [x] Patient assessment and monitoring of vital signs [x] Documentation [x] Medication orders and management Disposition Plan: CU Total Time Spent with Patient (Minutes): 60 History Interval history: Patient seen and examined at the bedside. Fully AAO, on RA, denied any pain nor any discomfort at this time. BP more control this am, off the Nipride gtt. Incision site noted with no complications. DORI overnight Hospitalist Physical - Constitutional Vitals: Temp Pulse Resp BP Pulse Ox 99.2 F 96 H 14 158/72 95 05/25/22 07:11 05/25/22 11:01 05/25/22 11:01 05/25/22 11:01 05/25/22 11:01 General appearance: Present: no acute distress, well-nourished, obese - EENT Eyes: Present: PERRL, EOM intact ENT: hearing intact - Neck Neck: Present: normal ROM - Respiratory Respiratory effort: normal Respiratory: bilateral: diminished - Cardiovascular Rhythm: regular Heart Sounds: Present: S1 & S2 - Extremities Extremities: no ischemia, pulses intact, pulses symmetrical Peripheral Pulses: within normal limits - Abdominal General gastrointestinal: soft, non-distended, normal bowel sounds - Integumentary Integumentary: Present: warm, dry (Left neck incision. Site CDI with no complications) - Psychiatric Psychiatric: appropriate mood/affect, cooperative - Neurologic Neurologic: CNII-XII intact, moves all extremities - Allied Health Allied health notes reviewed: nursing, case management Results - Labs CBC & Chem 7: 05/24/22 04:30 05/17/22 13:30 Labs: Laboratory Last Values WBC 12.2 K/mm3 (4.5-11.0) H 05/24/22 04:30 RBC 3.63 M/mm3 (3.65-5.03) L 05/24/22 04:30 Hgb 11.7 gm/dl (11.8-15.2) L 05/24/22 04:30 Hct 35.4 % (35.5-45.6) L 05/24/22 04:30 MCV 98 fl (84-94) H 05/24/22 04:30 MCH 32 pg (28-32) 05/24/22 04:30 MCHC 33 % (32-34) 05/24/22 04:30 RDW 14.3 % (13.2-15.2) 05/24/22 04:30 Plt Count 197 K/mm3 (140-440) 05/24/22 04:30 Lymph % (Auto) 32.8 % (13.4-35.0) 05/24/22 04:30 [place] % (Auto) 7.8 % (0.0-7.3) H 05/24/22 04:30 Eos % (Auto) 1.5 % (0.0-4.3) 05/24/22 04:30 Baso % (Auto) 0.7 % (0.0-1.8) 05/24/22 04:30 Lymph # (Auto) 4.0 K/mm3 (1.2-5.4) 05/24/22 04:30 [place] # (Auto) 1.0 K/mm3 (0.0-0.8) H 05/24/22 04:30 Eos # (Auto) 0.2 K/mm3 (0.0-0.4) 05/24/22 04:30 Baso # (Auto) 0.1 K/mm3 (0.0-0.1) 05/24/22 04:30 Seg Neutrophils % 57.2 % (40.0-70.0) 05/24/22 04:30 Seg Neutrophils # 7.0 K/mm3 (1.8-7.7) 05/24/22 04:30 Sodium 136 mmol/L (137-145) L 05/17/22 13:30 Potassium 4.2 mmol/L (3.6-5.0) 05/17/22 13:30 Chloride 100.8 mmol/L (98-107) 05/17/22 13:30 Carbon Dioxide 24 mmol/L (22-30) 05/17/22 13:30 Anion Gap 15 mmol/L 05/17/22 13:30 BUN 13 mg/dL (9-20) 05/17/22 13:30 Creatinine 1.2 mg/dL (0.8-1.3) 05/17/22 13:30 Estimated GFR > 60 ml/min 05/17/22 13:30 BUN/Creatinine Ratio 11 % 05/17/22 13:30 Glucose 191 mg/dL (75-100) H 05/17/22 13:30 POC Glucose 156 mg/dL (70-105) H 05/23/22 14:00 Calcium 10.0 mg/dL (8.4-10.2) 05/17/22 13:30 SARS-CoV-2 (PCR) Negative (Negative) 05/17/22 13:35 Olivera/IV: Voiding Method Urinal Active Medications - Current Medications Current Medications: Generic Name Dose Route Start Last Admin Trade Name Freq PRN Reason Stop Dose Admin Acetaminophen 650 mg 05/23/22 09:28 05/25/22 04:59 Acetaminophen 325 Mg Tab PO 650 mg Q4H PRN Administration Pain MILD(1-3)/Fever >100.5/BANERJEE Hydrocodone Bitart/Acetaminophen 1 each 05/23/22 08:44 05/24/22 20:44 Hydrocodone/Acetaminophen 5-325 Mg Tab PO 1 each Q6H PRN Administration Pain, Moderate (4-6) Aspirin 81 mg 05/25/22 10:00 05/25/22 09:44 Aspirin 81 Mg Tab Chew PO 81 mg QDAY KENZIE Administration Atorvastatin Calcium 80 mg 05/24/22 22:00 05/24/22 21:10 Atorvastatin 40 Mg Tab PO 80 mg QHS KENZIE Administration Clopidogrel Bisulfate 75 mg 05/23/22 10:00 05/25/22 09:44 Clopidogrel 75 Mg Tab PO 75 mg QDAY KENZIE Administration Docusate Sodium 100 mg 05/23/22 10:00 05/25/22 09:44 Docusate Sodium 100 Mg Cap PO 100 mg BID KENZIE Administration Famotidine 20 mg 05/25/22 10:00 05/25/22 09:44 Famotidine 20 Mg Tab PO 20 mg QDAY KENZIE Administration Fenofibrate 145 mg 05/25/22 10:00 05/25/22 09:44 Fenofibrate 145 Mg Tab PO 145 mg QDAY KENZIE Administration Fluoxetine HCl 20 mg 05/24/22 12:00 05/25/22 09:44 Fluoxetine 20 Mg Cap PO 20 mg QDAY KENZIE Administration Losartan Potassium 50 mg 05/25/22 10:00 05/25/22 09:44 Losartan 50 Mg Tab PO 50 mg QDAY KENZIE Administration Metoprolol Succinate 25 mg 05/25/22 10:00 05/25/22 09:44 Metoprolol Succinate Xl 25 Mg Tab PO 25 mg QDAY KENZIE Administration Morphine Sulfate 2 mg 05/23/22 08:44 05/23/22 16:45 Morphine 4 Mg/1 Ml Inj IV 2 mg Q4H PRN Administration Pain, Moderate (4-6) Quetiapine Fumarate 50 mg 05/25/22 22:00 Quetiapine 100 Mg Tab PO QHS [facility] Nutrition/Malnutrition Assess - Dietary Evaluation Nutrition/Malnutrition Findings: Nutrition Notes Start: 05/24/22 15:26 Freq: Status: Active Protocol: Document 05/24/22 15:26 BHARTI (Rec: 05/24/22 15:47 BHARTI [id number]) Nutrition 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 Current Diet Regular Diet (since L 05/23). Labs/Tests 05/24: Na 136, Glu 191. Pertinent Medications 05/24: Nutritionally unremarkable. 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 Pt's PO intake of meals has been Fair (50%), according to ADL notes. Pt is on Room Air, O2 saturation @ 95%, according to Physical Assessment History notes. Pt presents a surgical wound on the neck as sign of concern for skin risk at the time, according to Physical Assessment History notes. Procedure on 05/23: L-Carotid Artery Endartectomy with patch angiplasty, well tolerated, according to Operative Report notes. Plans for discharge later on 05/24, according to Progress notes. Percent of energy/protein needs met: Prescribed Regular Diet provides for energy/protein needs (2,289 Kcal/89 g) during LOS. Burn Absent Trauma Absent GI Symptoms None Food Allergy No Skin Integrity/Comment Surgical wound on the neck, Current % PO Fair (50-74%) Minimum of two criteria No Fluid Accumulation N/A Reduced Hr Receptionist Strength N/A (non-severe) Protein-Calorie Malnutrition N\A #1 Nutrition Diagnosis No nutrition diagnosis at this time Is patient on ventilator? No Is Patient Ambulatory and/or Out of Bed Yes REE-([facility]-ambulatory/OOB) [ 1897.350 NUTR.MSJOOB] Calculation Used for Recommendations [facility][1] Additional Notes Protein: 1.5-2 g/Kg ABW; 102- 136 g/day. Fluids: 1 ml/Kcal, or as per MD. Nutrition Intervention Change Diet Order: Continue Regular Diet. Follow-Up By: 05/31/22 Additional Comments Continue monitoring food tolerance, %PO intake of meals , and BM. <INOCENCIA LOCKE - Last Filed: 05/26/22 07:35> Assessment and Plan Assessment and plan: I saw and evaluated the patient. I agree with the findings and the plan of care as documented in the Nurse Practitioner's~note, with the following corrections and additions. Hospitalist Physical - Constitutional Vitals: Temp Pulse Resp BP Pulse Ox 98.4 F 82 14 172/79 93 05/25/22 11:43 05/25/22 15:00 05/25/22 15:00 05/25/22 15:00 05/25/22 15:00 Results - Labs CBC & Chem 7: 05/24/22 04:30 05/17/22 13:30 Labs: Laboratory Last Values WBC 12.2 K/mm3 (4.5-11.0) H 05/24/22 04:30 RBC 3.63 M/mm3 (3.65-5.03) L 05/24/22 04:30 Hgb 11.7 gm/dl (11.8-15.2) L 05/24/22 04:30 Hct 35.4 % (35.5-45.6) L 05/24/22 04:30 MCV 98 fl (84-94) H 05/24/22 04:30 MCH 32 pg (28-32) 05/24/22 04:30 MCHC 33 % (32-34) 05/24/22 04:30 RDW 14.3 % (13.2-15.2) 05/24/22 04:30 Plt Count 197 K/mm3 (140-440) 05/24/22 04:30 Lymph % (Auto) 32.8 % (13.4-35.0) 05/24/22 04:30 [place] % (Auto) 7.8 % (0.0-7.3) H 05/24/22 04:30 Eos % (Auto) 1.5 % (0.0-4.3) 05/24/22 04:30 Baso % (Auto) 0.7 % (0.0-1.8) 05/24/22 04:30 Lymph # (Auto) 4.0 K/mm3 (1.2-5.4) 05/24/22 04:30 [place] # (Auto) 1.0 K/mm3 (0.0-0.8) H 05/24/22 04:30 Eos # (Auto) 0.2 K/mm3 (0.0-0.4) 05/24/22 04:30 Baso # (Auto) 0.1 K/mm3 (0.0-0.1) 05/24/22 04:30 Seg Neutrophils % 57.2 % (40.0-70.0) 05/24/22 04:30 Seg Neutrophils # 7.0 K/mm3 (1.8-7.7) 05/24/22 04:30 Sodium 136 mmol/L (137-145) L 05/17/22 13:30 Potassium 4.2 mmol/L (3.6-5.0) 05/17/22 13:30 Chloride 100.8 mmol/L (98-107) 05/17/22 13:30 Carbon Dioxide 24 mmol/L (22-30) 05/17/22 13:30 Anion Gap 15 mmol/L 05/17/22 13:30 BUN 13 mg/dL (9-20) 05/17/22 13:30 Creatinine 1.2 mg/dL (0.8-1.3) 05/17/22 13:30 Estimated GFR > 60 ml/min 05/17/22 13:30 BUN/Creatinine Ratio 11 % 05/17/22 13:30 Glucose 191 mg/dL (75-100) H 05/17/22 13:30 POC Glucose 156 mg/dL (70-105) H 05/23/22 14:00 Calcium 10.0 mg/dL (8.4-10.2) 05/17/22 13:30 SARS-CoV-2 (PCR) Negative (Negative) 05/17/22 13:35 Olivera/IV: Voiding Method Urinal Nutrition/Malnutrition Assess - Dietary Evaluation Nutrition/Malnutrition Findings: Nutrition Notes Start: 05/24/22 15:26 Freq: Status: Discharge Protocol: Document 05/24/22 15:26 BHARTI (Rec: 05/24/22 15:47 BHARTI [id number]) Nutrition 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 Current Diet Regular Diet (since L 05/23). Labs/Tests 05/24: Na 136, Glu 191. Pertinent Medications 05/24: Nutritionally unremarkable. 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 Pt's PO intake of meals has been Fair (50%), according to ADL notes. Pt is on Room Air, O2 saturation @ 95%, according to Physical Assessment History notes. Pt presents a surgical wound on the neck as sign of concern for skin risk at the time, according to Physical Assessment History notes. Procedure on 05/23: L-Carotid Artery Endartectomy with patch angiplasty, well tolerated, according to Operative Report notes. Plans for discharge later on 05/24, according to Progress notes. Percent of energy/protein needs met: Prescribed Regular Diet provides for energy/protein needs (2,289 Kcal/89 g) during LOS. Burn Absent Trauma Absent GI Symptoms None Food Allergy No Skin Integrity/Comment Surgical wound on the neck, Current % PO Fair (50-74%) Minimum of two criteria No Fluid Accumulation N/A Reduced Hr Receptionist Strength N/A (non-severe) Protein-Calorie Malnutrition N\A #1 Nutrition Diagnosis No nutrition diagnosis at this time Is patient on ventilator? No Is Patient Ambulatory and/or Out of Bed Yes REE-([facility]-ambulatory/OOB) [ 1897.350 NUTR.MSJOOB] Calculation Used for Recommendations [facility][1] Additional Notes Protein: 1.5-2 g/Kg ABW; 102- 136 g/day. Fluids: 1 ml/Kcal, or as per MD. Nutrition Intervention Change Diet Order: Continue Regular Diet. Follow-Up By: 05/31/22 Additional Comments Continue monitoring food tolerance, %PO intake of meals , and BM.
[2022-05-25] MEDS ORDERED: hydrALAZINE 20 MG/1 ML INJ IV PRN (12:43)
[2022-05-25] MEDS ORDERED: DEXTROSE 50% IN WATER (25GM) 50 ML SYRINGE IV PRN (12:53)
[2022-05-25 15:04] VITALS: BP 172/79
--- NOTE | 2022-05-25 15:09 | Discharge Summary ---
Providers - Providers Date of Admission: 05/23/22 05:56 Date of discharge: 05/25/22 Attending physician: KARLA CLAY 05/24/22 15:59 Consult to Physician [CONS] Routine Comment: Consulting Provider: INOCENCIA LOCKE Physician Instructions: Reason For Exam: Hypertension management Primary care physician: NICHOLE CLEMENS Hospitalization Condition: Good Hospital course: Patient with a history of left carotid stenosis postop day 2 status post left carotid endarterectomy that was uneventful. Following patient's surgery, the patient had some transient hypertension and was initially started on a drip which has now been discontinued. Patient's blood pressure has been stable since. Disposition: 30 STILL A PATIENT Final Discharge Diagnosis (Prints w/discharge instructions): Left carotid stenosis Core Measure Documentation - Palliative Care Palliative Care/ Comfort Measures: Not Applicable - Core Measures Any of the following diagnoses?: none Exam - Constitutional Vitals: Temp Pulse Resp BP Pulse Ox 98.4 F 82 14 172/79 93 05/25/22 11:43 05/25/22 15:00 05/25/22 15:00 05/25/22 15:00 05/25/22 15:00 General appearance: Present: no acute distress - EENT Eyes: Present: EOM intact ENT: hearing intact - Neck Neck: Present: supple, normal ROM, other (Left CEA scar, no significant hematoma) - Respiratory Respiratory effort: normal - Abdominal General gastrointestinal: Present: deferred Male genitourinary: Present: deferred - Rectal Rectal Exam: deferred - Psychiatric Psychiatric: appropriate mood/affect, cooperative Plan Activity: advance as tolerated, no driving until cleared by PCP (Until follow-up visit) Weight Bearing Status: Weight Bear as Tolerated Diet: regular Wound: keep clean and dry, per your surgeon's advice Follow up with: NICHOLE CLEMENS JR, MD [Primary Care Provider] - 7 Days Prescriptions: HYDROcodone/APAP 5-325 [[place] 5/325] 1 each PO Q4HR PRN #30 tablet PRN Reason: Pain Clopidogrel [Plavix] 75 mg PO QDAY #90 tablet
[2022-05-25] MEDS ORDERED: INSULIN LISPRO 100 UNIT/ML SUB-Q SCH (16:30)
[2022-05-25] MEDS ORDERED: QUEtiapine 100 MG TAB PO SCH (22:00)
[2022-05-25] MEDS ORDERED: METOPROLOL TARTRATE 25 MG TAB PO SCH (22:00)
== END 2022-05-25 17:00 | disposition home or self-care (01) | DRG 38 ==
LOC: 3A 05:56 → IMCU 09:14 → EDBD 09:30
PROVIDERS: ADMIT Surgery Vascular Surgery; ATTEND Surgery Vascular Surgery
PROC: 03CL0ZZ Extirpation of Matter from Left Internal Carotid Artery, Open Approach (ICD-10-PCS; principal; 2022-05-23)
PROC: 03UL0JZ Supplement Left Internal Carotid Artery with Synthetic Substitute, Open Approach (ICD-10-PCS; 2022-05-23)
DX: I65.22 Occlusion and stenosis of left carotid artery (principal); F17.213 Nicotine dependence, cigarettes, with withdrawal; Z20.822 Contact with and (suspected) exposure to COVID-19; I10 Essential (primary) hypertension; E11.51 Type 2 diabetes mellitus with diabetic peripheral angiopathy without gangrene; F43.10 Post-traumatic stress disorder, unspecified; E78.2 Mixed hyperlipidemia; Z71.6 Tobacco abuse counseling; Z83.3 Family history of diabetes mellitus; Z82.49 Family history of ischemic heart disease and other diseases of the circulatory system; Z79.82 Long term (current) use of aspirin; Z86.73 Personal history of transient ischemic attack (TIA), and cerebral infarction without residual deficits
CPT/HCPCS: 36415; 36620; 80048; 82962; 85025; 85027; 87641; 88304; 88311; G0378; J1815; J3490; C1768; J0360; J0690; J1170; J1644; J2250; J2270; J2370; J2405; J2440; J2704; J2710; J2720; J7040; J7120; U0003